=== PATIENT | male | born 1950 | race Asian ===

== ENCOUNTER 2022-10-11 18:26 | Emergency (ER) | payer OTHER ==
[2022-10-12] MEDS ORDERED: EPINEPHrine 1:10,000 [1 MG/10 ML] SYRINGE IVP ONE (12:57)
== END 2022-10-12 00:55 ==
LOC: EMS 18:27
DX: I46.9 Cardiac arrest, cause unspecified (principal)
CPT/HCPCS: 99291; 82962; J0171